=== PATIENT | male | born 1940 | race Caucasian/White ===

== ENCOUNTER 2017-06-16 20:09 | Inpatient (IN) | payer MEDICARE ==
[~2017-06-16] VITALS: Ht 175.3 cm; Wt 95.0 kg
[2017-06-16 20:16] VITALS: BP 135/63; PULSE 71; RESP 16; TEMP 100; O2SAT 95
--- NOTE | 2017-06-16 20:24 | PD ---
HPI Chief Complaint: Medical Clearance Time Seen by Provider: 20:16 Travel History International Travel<30 days: No Contact w/Intl Traveler<30days: No Traveled to known affect area: No History of Present Illness HPI 76-year-old male with history of diabetes, hypertension, hyperlipidemia, hypothyroidism, CHF, brought in by ambulance for evaluation of fever and generalized weakness. The patient is [place] he [place] very tired and pulled off the side of the road to take a nap. He denies chest pain or dyspnea. No cough. No abdominal pain, nausea, vomiting, or diarrhea. PFSH Social History Tobacco Use: No Allergies-Medications (Allergen,Severity, Reaction): Coded Allergies: amlodipine (Verified Allergy, Unknown, 06/16/17) insulin detemir (Verified Allergy, Unknown, 06/16/17) Reported Meds & Prescriptions Reported Meds & Active Scripts Active Reported [place] Respiclick Inh (Fluticasone Propionate) 55 Mcg/Actuation Aer.pow.ba 55 Mg INH BID Lidocaine Topical (Lidocaine HCl) 5 % Oint 1 Applic TOPICAL DAILY PRN Oxycodone (Oxycodone HCl) 5 Mg Cap 5 Mg PO Q4H PRN Afrezza 4 & 8 & 12 Unit (Insulin Regular (Human)) 4-8-12(60) Pow Humulin R Inj (Insulin Human Regular) 1,000 Unit/10 Ml Vial 55 Units SQ DAILYAC Max dose at bedtime:( )units; sugars < 70,(0)units; sugars 150-199,(5)units; sugars 200-249,(10)units; sugars 250-299,(15)units; sugars 300-349,(20)units; sugars more than 349,(25)units. Amiodarone (Amiodarone HCl) 100 Mg Tab 100 Mg PO BID Metoprolol Tartrate 25 Mg Tab 25 Mg PO BID Gabapentin 300 Mg Cap 300 Mg PO TID Furosemide 40 Mg Tab 40 Mg PO DAILY Pentoxifylline ER (Pentoxifylline) 400 Mg Tab 400 Mg PO BID Sildenafil 20 Mg Tab 20 Mg PO TID Terazosin (Terazosin HCl) 5 Mg Cap 5 Mg PO HS Atorvastatin (Atorvastatin Calcium) 80 Mg Tab 80 Mg PO HS Lisinopril 5 Mg Tab 5 Mg PO DAILY Vitamin D3 (Cholecalciferol) 1,000 Unit Cap 1,000 Units DAILY Levothyroxine (Levothyroxine Sodium) 25 Mcg Tab 15 Mcg PO DAILY Review of Systems Except as stated in HPI: all other systems reviewed are Neg Physical Exam Narrative GENERAL: Well-developed, well-nourished, awake, alert, pleasant, no apparent distress. SKIN: Focused skin assessment warm/dry. Bilateral lower extremity warmth and erythema with superficial wounds. HEAD: Atraumatic. Normocephalic. EYES: Pupils equal and round. No scleral icterus. No injection or drainage. ENT: No nasal bleeding or discharge. Mucous membranes pink and moist. NECK: Trachea midline. No JVD. No nuchal rigidity. CARDIOVASCULAR: Regular rate and rhythm. Brisk dorsalis pedis pulses bilaterally. RESPIRATORY: No accessory muscle use. Clear to auscultation. Breath sounds equal bilaterally. GASTROINTESTINAL: Abdomen soft, non-tender, nondistended. MUSCULOSKELETAL: No obvious deformities. No clubbing. No cyanosis. No edema. NEUROLOGICAL: Awake and alert. No obvious cranial nerve deficits. Motor grossly within normal limits. Normal speech. PSYCHIATRIC: Appropriate mood and affect; insight and judgment normal. Data Data Last Documented VS Vital Signs Date Time Temp Pulse Resp B/P (MAP) Pulse Ox O2 Delivery O2 Flow Rate FiO2 06/16/17 20:21 96 2.00 06/16/17 20:20 Room Air 06/16/17 20:16 100.0 71 16 135/63 (87) Orders Orders Sepsis Workup Initiated (06/16/17 ) Complete Blood Count With Diff (06/16/17 20:19) Comprehensive Metabolic Panel (06/16/17 20:19) Prothrombin Time / Inr (Pt) (06/16/17 20:19) Act Partial Throm Time (Ptt) (06/16/17 20:19) Lactic Acid Sepsis Protocol (06/16/17 20:19) Urinalysis - C+S If Indicated (06/16/17 20:19) Influenzae A/B Antigen (06/16/17 20:19) Blood Culture (06/16/17 20:19) Chest, Single Ap (06/16/17 20:19) Blood Glucose (06/16/17 20:19) Ecg Monitoring (06/16/17 20:19) Iv Access Insert/Monitor (06/16/17 20:19) Oximetry (06/16/17 20:19) Oxygen Administration (06/16/17 20:19) Acetaminophen (Tylenol) (06/16/17 20:30) Ceftriaxone Inj (Rocephin Inj) (06/16/17 20:30) Azithromycin Inj (Zithromax Inj) (06/16/17 20:30) Cath For Specimen (06/16/17 20:58) Ceftriaxone Inj (Rocephin Inj) (06/17/17 22:00) Vancomycin Consult Pharmacy (Vancomycin (06/16/17 21:45) Vital Signs (Adult) Q4H (06/16/17 21:35) Activity Oob With Assistance (06/16/17 21:35) Crnp / Telemetry .CONTINUOUS (06/16/17 21:35) Intake + Output DERREK.QSHIFT (06/16/17 21:35) Diet 1800 Ada Cons Carb (06/17/17 Breakfast) Sodium Chlor 0.9% 1000 Ml Inj (Ns 1000 M (06/16/17 21:35) Sodium Chloride 0.9% Flush (Ns Flush) (06/16/17 21:45) Sodium Chloride 0.9% Flush (Ns Flush) (06/17/17 09:00) Ondansetron Inj (Zofran Inj) (06/16/17 21:45) Comprehensive Metabolic Panel (06/17/17 06:00) Complete Blood Count With Diff (06/17/17 06:00) Pt Request For Service (06/16/17 21:35) Case Management Consult (06/16/17 21:35) Heparin Inj (Heparin Inj) (06/17/17 09:00) Acetaminophen (Tylenol) (06/16/17 21:45) Acetamin-Hydrocod 325-5 Mg (Munith 5-325 (06/16/17 21:45) Acetamin-Hydrocod 325-10 Mg (Munith 10-32 (06/16/17 21:45) Docusate Sodium-Senna (Ofelia-Colace) (06/17/17 09:00) Magnesium Hydroxide Liq (Milk Of Magnesi (06/16/17 21:45) Sennosides (Senokot) (06/16/17 21:45) Bisacodyl Supp (Dulcolax Supp) (06/16/17 21:45) Lactulose Liq (Lactulose Liq) (06/16/17 21:45) Inpatient Certification (06/16/17 ) Hemoglobin (Hgb) A1c (06/17/17 06:00) Type And Screen (06/16/17 21:47) Admit Order (Ed Use Only) (06/16/17 21:48) Consult Gastroenterology (06/16/17 ) Hgb & Hct (06/17/17 00:00) Pantoprazole Inj (Protonix Inj) (06/16/17 22:00) Pantoprazole Inj (Protonix Inj) (06/17/17 09:00) Admit To Inpatient (06/16/17 21:49) Labs Laboratory Tests Test 06/16/17 20:23 White Blood Count 7.8 TH/MM3 Red Blood Count 2.56 MIL/MM3 Hemoglobin 8.1 GM/DL Hematocrit 23.5 % Mean Corpuscular Volume 91.6 FL Mean Corpuscular Hemoglobin 31.5 PG Mean Corpuscular Hemoglobin Concent 34.4 % Red Cell Distribution Width 17.0 % Platelet Count 168 TH/MM3 Mean Platelet Volume 9.0 FL Neutrophils (%) (Auto) 81.8 % Lymphocytes (%) (Auto) 4.9 % Monocytes (%) (Auto) 6.4 % Eosinophils (%) (Auto) 6.3 % Basophils (%) (Auto) 0.6 % Neutrophils # (Auto) 6.4 TH/MM3 Lymphocytes # (Auto) 0.4 TH/MM3 Monocytes # (Auto) 0.5 TH/MM3 Eosinophils # (Auto) 0.5 TH/MM3 Basophils # (Auto) 0.0 TH/MM3 CBC Comment DIFF FINAL Differential Comment Prothrombin Time 10.5 SEC Prothromb Time International Ratio 1.0 RATIO Activated Partial Thromboplast Time 21.2 SEC Blood Urea Nitrogen 44 MG/DL Creatinine 2.21 MG/DL Random Glucose 187 MG/DL Total Protein 6.5 GM/DL Albumin 3.0 GM/DL Calcium Level 8.1 MG/DL Alkaline Phosphatase 94 U/L Aspartate Amino Transf (AST/SGOT) 8 U/L Alanine Aminotransferase (ALT/SGPT) 13 U/L Total Bilirubin 0.3 MG/DL Sodium Level 135 MEQ/L Potassium Level 4.6 MEQ/L Chloride Level 103 MEQ/L Carbon Dioxide Level 24.2 MEQ/L Anion Gap 8 MEQ/L Estimat Glomerular Filtration Rate 29 ML/MIN Lactic Acid Level 1.7 mmol/L [facility] Medical Decision Making Medical Screen Exam Complete: Yes Emergency Medical Condition: Yes Differential Diagnosis Sepsis, pneumonia, influenza, viral illness, UTI, metabolic abnormality, DKA Narrative Course Vital signs reviewed. CBC: WBC 7.8, hemoglobin 8.1, hematocrit 23.5, platelets 168, neutrophils 81.8%. CMP is remarkable for BUN 44, creatinine 2.21, GFR 29, random glucose 187. Lactic acid is 1.7. Chest x-ray: Minimal probable changes right base suspicious for an inflammatory process. Patient has heme positive brown stool. Patient was made aware of all findings. He was written for Rocephin and azithromycin. He will be admitted for further treatment and evaluation of pneumonia, anemia, GI bleed, renal insufficiency. Case discussed with hospitalist Dr. Meade who will admit the patient to her service. Diagnosis Primary Impression: Pneumonia Qualified Codes: J18.1 - Lobar pneumonia, unspecified organism Additional Impressions: Anemia Qualified Codes: D64.9 - Anemia, unspecified GI bleed Qualified Codes: K92.2 - Gastrointestinal hemorrhage, unspecified Renal insufficiency Admitting Information Admitting Physician Requests: Admit Parth Gan MD Jun 16, 2017 20:24
[2017-06-16] MEDS ORDERED: AZITHROMYCIN INJ 500 MG in SODIUM CHLOR 0.9% 250 ML INJ 250 ML IV ONE (20:30)
[2017-06-16] MEDS ORDERED: cefTRIAXone INJ 1,000 MG in SODIUM CHLORIDE 0.9% INJ 100 ML IV ONE (20:30)
[2017-06-16] MEDS ORDERED: ACETAMINOPHEN 325 MG TAB PO ONE (20:30)
[2017-06-16 20:43] LABS: AUTOMATED NEUTROPHIL # 6.4 TH/MM3 (1.8-7.7); BASOPHIL % 0.6 % (0.0-2.0); EOSINOPHIL # 0.5 TH/MM3 (0-0.4); EOSINOPHIL % 6.3 % (0.0-4.0); HEMATOCRIT 23.5 % (39.0-51.0); HEMOGLOBIN 8.1 GM/DL (13.0-17.0); LYMPH % 4.9 % (9.0-44.0); LYMPHOCYTE # 0.4 TH/MM3 (1.0-4.8); MEAN CELL VOLUME 91.6 FL (80.0-100.0); MEAN CORPUSCULAR HEMOGLOBIN 31.5 PG (27.0-34.0); MEAN CORPUSCULAR HGB CONC 34.4 % (32.0-36.0); MONO % 6.4 % (0.0-8.0); MONOCYTE # 0.5 TH/MM3 (0-0.9); NEUT % 81.8 % (16.0-70.0); PLATELET COUNT 168 TH/MM3 (150-450); RED BLOOD COUNT 2.56 MIL/MM3 (4.50-5.90); WHITE BLOOD COUNT 7.8 TH/MM3 (4.0-11.0)
[2017-06-16 20:53] LABS: PROTHROMBIN TIME - PATIENT 10.5 SEC (9.8-11.6)
--- NOTE | 2017-06-16 20:55 | RADRPT ---
EXAM DATE/TIME: 06/16/2017 20:36 [place] COMPARISON: No previous studies available for comparison. INDICATIONS : Fever. MEDICAL HISTORY : Unobtainable. SURGICAL HISTORY : Unobtainable. ENCOUNTER: Initial ACUITY: 1 day PAIN SCORE: 0/10 LOCATION: chest FINDINGS: Mild compensated cardiomegaly with minimal parenchymal changes right base suspicious for an inflammat ory process. No pleural effusion no failureThe portion of the bony skeleton visualized is unremarkable. CONCLUSION: Minimal probable changes right base Suspicious for an inflammatory process Aditya Cam MD FACR on June 16, 2017 at 20:51 Board Certified Radiologist. This report was verified electronically.
[2017-06-16 21:03] LABS: AST (GOT) 8 U/L (15-37); BICARBONATE 24.2 MEQ/L (21.0-32.0); BLOOD UREA NITROGEN 44 MG/DL (7-18); CALCIUM 8.1 MG/DL (8.5-10.1); CHLORIDE 103 MEQ/L (98-107); CREATININE 2.21 MG/DL (0.60-1.30); GLOMERULAR FILTRATION RATE 29 ML/MIN (>89); GLUCOSE,RANDOM 187 MG/DL (74-106); SODIUM (NA) 135 MEQ/L (136-145)
[2017-06-16 21:04] LABS: ALT (GPT) 13 U/L (12-78)
[2017-06-16 21:07] LABS: ALKALINE PHOSPHATASE 94 U/L (45-117); TOTAL BILIRUBIN ADULT 0.3 MG/DL (0.2-1.0); TOTAL PROTEIN 6.5 GM/DL (6.4-8.2)
--- NOTE | 2017-06-16 21:41 | HHI.HP ---
[facility] Service [facility] Hospitalists Primary Care Physician Admission Diagnosis Diagnoses: (1) PNA (pneumonia) Diagnosis: Principal (2) Cellulitis Diagnosis: Principal (3) GI bleed Diagnosis: Principal (4) TIARRA (acute kidney injury) Diagnosis: Principal (5) Generalized weakness Diagnosis: Principal (6) DM (diabetes mellitus) Diagnosis: Principal Travel History International Travel<30 Days: No Contact w/Intl Traveler <30 Da: No Traveled to Known Affected Are: No History of Present Illness This is a 76-year-old male with a PMH of HTN, Hyperlipidemia, Hypothyroidism, CHF (Unknown EF), PAD, Anemia and DM who was brought to the ER by EMS secondary to generalized weakness. Pt driving from [employer] for the [employer], states while driving he became very "sleepy" and pulled over, thought he was having an issue w/ his blood sugar and called 911. Denies fever, chills, chest pain, SOB , nausea, vomiting or diarrhea. On arrival, BP 135/63, HR 71, O2 sat 95% RA, Temp 100.0. WBC 7.8. Hemoglobin 8.1, pt states last Hgb was 9.2. Creatinine 2.21, no previous labs for comparison. Lactic Acid 1.7. INR 1.0. CXR with probable changes right base. On exam, pt noted to have bilateral lower extremity cellulitis, also Hemoccult +. S/p Rocephin/Zithro in ER. Review of Systems Except as stated in HPI: all other systems reviewed are Neg ROS: 14 point review of systems otherwise negative. Past Family Social History Past Medical History PMH: HTN, Hyperlipidemia, Hypothyroidism, CHF (Unknown EF), PAD, Anemia and DM Past Surgical History PAST SURGICAL HISTORY: Cholecystectomy, Left Testicle Removal, LE Stent Allergies: Coded Allergies: amlodipine (Verified Allergy, Unknown, 06/16/17) insulin detemir (Verified Allergy, Unknown, 06/16/17) Family History PAST FAMILY HISTORY: Reviewed. No h/o DM or CAD Social History PAST SOCIAL HISTORY: Negative for alcohol, tobacco or drugs. Physical Exam Vital Signs Vital Signs Date Time Temp Pulse Resp B/P (MAP) Pulse Ox O2 Delivery O2 Flow Rate FiO2 06/16/17 20:16 100.0 71 16 135/63 (87) 95 Physical Exam PE: GENERAL: Elderly white male in no acute distress, lethargic but rouses easily, very [place]. HEENT: PERRLA, EOMI. No scleral icterus or conjunctival pallor. No lid lag or facial droop. CARDIOVASCULAR: Regular rate and rhythm. No obvious murmurs to auscultation. No chest tenderness to palpation. RESPIRATORY: No obvious rhonchi or wheezing. Clear to auscultation. Breath sounds equal bilaterally. GASTROINTESTINAL: Abdomen soft, non-tender, nondistended. BS normal. MUSCULOSKELETAL: Extremities without clubbing, cyanosis, 2+ edema. No obvious deformities. Bilateral lower extremity cellulitis w/ chronic wounds. NEUROLOGICAL: Awake, alert and oriented x4. No focal neurologic deficits. Moving both upper and lower extremities spontaneously. Laboratory Laboratory Tests Test 06/16/17 20:23 White Blood Count 7.8 Red Blood Count 2.56 Hemoglobin 8.1 Hematocrit 23.5 Mean Corpuscular Volume 91.6 Mean Corpuscular Hemoglobin 31.5 Mean Corpuscular Hemoglobin Concent 34.4 Red Cell Distribution Width 17.0 Platelet Count 168 Mean Platelet Volume 9.0 Neutrophils (%) (Auto) 81.8 Lymphocytes (%) (Auto) 4.9 Monocytes (%) (Auto) 6.4 Eosinophils (%) (Auto) 6.3 Basophils (%) (Auto) 0.6 Neutrophils # (Auto) 6.4 Lymphocytes # (Auto) 0.4 Monocytes # (Auto) 0.5 Eosinophils # (Auto) 0.5 Basophils # (Auto) 0.0 CBC Comment DIFF FINAL Differential Comment Prothrombin Time 10.5 Prothromb Time International Ratio 1.0 Activated Partial Thromboplast Time 21.2 Blood Urea Nitrogen 44 Creatinine 2.21 Random Glucose 187 Total Protein 6.5 Albumin 3.0 Calcium Level 8.1 Alkaline Phosphatase 94 Aspartate Amino Transf (AST/SGOT) 8 Alanine Aminotransferase (ALT/SGPT) 13 Total Bilirubin 0.3 Sodium Level 135 Potassium Level 4.6 Chloride Level 103 Carbon Dioxide Level 24.2 Anion Gap 8 Estimat Glomerular Filtration Rate 29 Lactic Acid Level 1.7 Date/Time Source Procedure Growth Status 06/16/17 20:28 Blood Peripheral Aerobic Blood Culture Pending Received 06/16/17 20:28 Blood Peripheral Anaerobic Blood Culture Pending Received 06/16/17 20:20 Nasal Washing Influenza Types A,B Antigen (CE) - Final NEGATIVE FOR FLU A AND B ANTIGEN.... Complete Result Diagram: 06/16/17202206/16/172022 Carolann VTE Risk Assessment Caprin VTE Risk Assessment: No/Low Risk (score <= 1) VTE Pharm Contraindication: Active bleeding Caprini Risk Assessment Model Point Value = 1 Point Value = 2 Point Value = 3 Point Value = 5 Age 41-60 Minor surgery BMI > 25 kg/m2 Swollen legs Varicose veins or History of unexplained or recurrent spontaneous Oral contraceptives or hormone replacement Sepsis (< 1 month) Serious lung disease, including pneumonia (< 1 month) Abnormal pulmonary function Acute myocardial infarction Congestive heart failure (< 1 month) History of inflammatory bowel disease Medical patient at bed rest Age 61-74 Arthroscopic surgery Major open surgery (> 45 min) Laparoscopic surgery (> 45 min) Malignancy Confined to bed (> 72 hours) Immobilizing plaster cast Central venous access Age >= 75 History of VTE Family history of VTE Factor V Leiden Prothrombin [id number] Lupus anticoagulant Anticardiolipin antibodies Elevated serum homocysteine Heparin-induced thrombocytopenia Other congenital or acquired thrombophilia Stroke (< 1 month) Elective arthroplasty Hip, pelvis, or leg fracture Acute spinal cord injury (< 1 month) Prophylaxis Regimen Total Risk Factor Score Risk Level Prophylaxis Regimen 0-1 Low Early ambulation 2 Moderate Order ONE of the following: *Sequential Compression Device (SCD) *Heparin 5000 units SQ BID 3-4 Higher Order ONE of the following medications: *Heparin 5000 units SQ TID *Enoxaparin/Lovenox 40 mg SQ daily (WT < 150 kg, CrCl > 30 mL/min) *Enoxaparin/Lovenox 30 mg SQ daily (WT < 150 kg, CrCl > 10-29 mL/min) *Enoxaparin/Lovenox 30 mg SQ BID (WT < 150 kg, CrCl > 30 mL/min) AND/OR *Sequential Compression Device (SCD) 5 or more Highest Order ONE of the following medications: *Heparin 5000 units SQ TID (Preferred with Epidurals) *Enoxaparin/Lovenox 40 mg SQ daily (WT < 150 kg, CrCl > 30 mL/min) *Enoxaparin/Lovenox 30 mg SQ daily (WT < 150 kg, CrCl > 10-29 mL/min) *Enoxaparin/Lovenox 30 mg SQ BID (WT < 150 kg, CrCl > 30 mL/min) AND *Sequential Compression Device (SCD) Assessment and Plan Problem List: (1) PNA (pneumonia) ICD Code: J18.9 - Pneumonia, unspecified organism (2) Cellulitis ICD Code: L03.90 - Cellulitis, unspecified (3) GI bleed ICD Code: K92.2 - Gastrointestinal hemorrhage, unspecified Status: Acute (4) Generalized weakness ICD Code: R53.1 - Weakness (5) TIARRA (acute kidney injury) ICD Code: N17.9 - Acute kidney failure, unspecified (6) DM (diabetes mellitus) ICD Code: E11.9 - Type 2 diabetes mellitus without complications Assessment and Plan A/P: 1. PNA: CXR w/ RLL infiltrate, images reviewed by me, s/p Rocephin/Zithro in ER, will continue w/ IV Abx, DuoNeb prn, Mucinex bid. 2. Cellulitis: Bilateral lower extremity cellulitis w/ chronic wounds, continue w/ IV Abx, will add Vanc for coverage of MRSA. Consult Wound Management for further evaluation. 3. GI Bleed: Hemoccult + on exam, Hgb 8.1, reports baseline Hgb 9.2, Protonix IV, GI Consult for further evaluation. Hold anticoagulation. Check repeat Hgb/ Hct tonight and repeat labs in am. 4. Generalized Weakness: Likely secondary to combination of above, PT for eval /tx, Case Management as needed. Niece is POA, has been informed of admission. 5. TIARRA: Creatinine 2.21, no previous labs for comparison, presumably new. IVF for hydration. Check UA to eval for underlying UTI. Repeat labs in a.m. 6. DM: Sliding scale with Accu-Cheks. Check Hgb A1c. 7. DVT Prophylaxis: Mechanical contraindication secondary to bilateral lower extremity cellulitis. Pharmacologic contraindication secondary to GI Bleed. 8. Social work for DC planning as needed. 9. Case discussed at length with the ER physician, lab/record/imaging reviewed by me. Physician Certification 2 Midnight Certification Type: Admission for Inpatient Services Order for Inpatient Services The services are ordered in accordance with Medicare regulations or non- Medicare payer requirements, as applicable. In the case of services not specified as inpatient-only, they are appropriately provided as inpatient services in accordance with the 2-midnight benchmark. Estimated LOS (days): 2 days is the estimated time the patient will need to remain in the hospital, assuming treatment plan goals are met and no additional complications. Post-Hospital Plan: Not yet determined Problem Qualifiers (1) GI bleed: Qualified Codes: K92.2 - Gastrointestinal hemorrhage, unspecified Olivia Meade MD Jun 16, 2017 21:41
[2017-06-16] MEDS ORDERED: ACETAMINOPHEN 325 MG TAB PO PRN (21:45)
[2017-06-16] MEDS ORDERED: BISACODYL 10 MG SUPP RECTAL PRN (21:45)
[2017-06-16] MEDS ORDERED: SODIUM CHLORIDE 0.9% FLUSH 10 ML FLUSH IV FLUSH PRN (21:45)
[2017-06-16] MEDS ORDERED: SENNOSIDES 8.6 MG TAB PO PRN (21:45)
[2017-06-16] MEDS ORDERED: ACETAMINOPHEN/HYDROcodone 325 MG/5 MG TAB PO PRN (21:45)
[2017-06-16] MEDS ORDERED: ACETAMINOPHEN/HYDROcodone 325 MG/10 MG TAB PO PRN (21:45)
[2017-06-16] MEDS ORDERED: Vancomycin Consult Pharmacy 1 EA OTHER SCH (21:45)
[2017-06-16] MEDS ORDERED: MAGNESIUM HYDROXIDE SUSP 30 ML CUP PO PRN (21:45)
[2017-06-16] MEDS ORDERED: ONDANSETRON HCL 4 MG/2 ML VIAL IVP PRN (21:45)
[2017-06-16] MEDS ORDERED: LACTULOSE SYRUP 20 GM/30 ML CUP PO PRN (21:45)
[2017-06-16] MEDS ORDERED: PANTOPRAZOLE SODIUM 40 MG VIAL IV PUSH ONE (22:00)
[2017-06-16] MEDS ORDERED: TERA5CAP3 PO (22:10)
[2017-06-16] MEDS ORDERED: LISI-519 PO (22:10)
[2017-06-16] MEDS ORDERED: CHOL10008 (22:10)
[2017-06-16] MEDS ORDERED: ATOR80TA45 PO (22:10)
[2017-06-16] MEDS ORDERED: LEVO25TA4 PO (22:10)
[2017-06-16] MEDS ORDERED: LIDO5%T TOPICAL (22:17)
[2017-06-16] MEDS ORDERED: GABA300C5 PO (22:17)
[2017-06-16] MEDS ORDERED: INSU1POW25 (22:17)
[2017-06-16] MEDS ORDERED: INSU100V2 SQ (22:17)
[2017-06-16] MEDS ORDERED: OXYC1CAP PO (22:17)
[2017-06-16] MEDS ORDERED: FURO40TA PO (22:17)
[2017-06-16] MEDS ORDERED: PENT400T PO (22:17)
[2017-06-16] MEDS ORDERED: FLUT55AE INH (22:17)
[2017-06-16] MEDS ORDERED: SILD20TA11 PO (22:17)
[2017-06-16] MEDS ORDERED: METO25TA3 PO (22:17)
[2017-06-16] MEDS ORDERED: AMIO0.1T PO (22:17)
[2017-06-16 22:40] VITALS: BP 120/54; PULSE 59; RESP 15; O2SAT 98
[2017-06-16] MEDS ORDERED: RESP: ALBUTEROL 2.5 MG/IPRATROPIUM 0.5 MG NEB (PRN) NEB (22:45)
[2017-06-16] MEDS ORDERED: VANCOMYCIN INJ 1,250 MG in SODIUM CHLOR 0.9% 250 ML INJ 250 ML IV ONE (23:00)
[2017-06-16] MEDS: SODIUM CHLOR 0.9% 1000 ML INJ 1,000 ML IV SCH (23:12)
[2017-06-17] VITALS: BP 136/60; PULSE 58; RESP 18; TEMP 98.4; O2SAT 98
[2017-06-17 00:05] VITALS: PULSE 59
[2017-06-17 01:54] LABS: HEMATOCRIT 23.3 % (39.0-51.0); HEMOGLOBIN 7.8 GM/DL (13.0-17.0)
[2017-06-17 04:00] VITALS: BP 127/60; PULSE 52; PULSE 57; RESP 18; TEMP 97.9; O2SAT 97
[2017-06-17 08:00] VITALS: BP 125/58; PULSE 51; RESP 16; TEMP 98.1; O2SAT 96
[2017-06-17 08:02] LABS: AUTOMATED NEUTROPHIL # 4.8 TH/MM3 (1.8-7.7); BASOPHIL % 0.3 % (0.0-2.0); EOSINOPHIL # 0.5 TH/MM3 (0-0.4); HEMATOCRIT 23.3 % (39.0-51.0); HEMOGLOBIN 7.9 GM/DL (13.0-17.0); LYMPH % 4.7 % (9.0-44.0); LYMPHOCYTE # 0.3 TH/MM3 (1.0-4.8); MEAN CELL VOLUME 92.8 FL (80.0-100.0); MEAN CORPUSCULAR HEMOGLOBIN 31.4 PG (27.0-34.0); MEAN CORPUSCULAR HGB CONC 33.8 % (32.0-36.0); MEAN PLATELET VOLUME 9.3 FL (7.0-11.0); MONO % 8.9 % (0.0-8.0); MONOCYTE # 0.5 TH/MM3 (0-0.9); NEUT % 78.1 % (16.0-70.0); PLATELET COUNT 154 TH/MM3 (150-450); RED BLOOD COUNT 2.51 MIL/MM3 (4.50-5.90); RED CELL DISTRIBUTION WIDTH 16.8 % (11.6-17.2); WHITE BLOOD COUNT 6.1 TH/MM3 (4.0-11.0)
[2017-06-17 08:22] LABS: ALBUMIN 2.7 GM/DL (3.4-5.0); ALT (GPT) 10 U/L (12-78); AST (GOT) 9 U/L (15-37); BICARBONATE 24.2 MEQ/L (21.0-32.0); BLOOD UREA NITROGEN 40 MG/DL (7-18); CHLORIDE 106 MEQ/L (98-107); GLOMERULAR FILTRATION RATE 32 ML/MIN (>89); GLUCOSE,RANDOM 208 MG/DL (74-106); SODIUM (NA) 139 MEQ/L (136-145)
[2017-06-17 08:25] LABS: ALKALINE PHOSPHATASE 87 U/L (45-117); TOTAL BILIRUBIN ADULT 0.2 MG/DL (0.2-1.0)
[2017-06-17] MEDS: SODIUM CHLOR 0.9% 1000 ML INJ 1,000 ML IV SCH (08:29)
[2017-06-17] MEDS ORDERED: PANTOPRAZOLE SODIUM 40 MG VIAL IV PUSH SCH (09:00)
[2017-06-17] MEDS ORDERED: PENTOXIFYLLINE 400 MG CONTROLLED RELEASE TAB PO SCH (09:00)
[2017-06-17] MEDS ORDERED: HEPARIN SODIUM - SQ 10,000 UNITS/ML VIAL SQ SCH (09:00)
[2017-06-17] MEDS ORDERED: SODIUM CHLORIDE 0.9% FLUSH 10 ML FLUSH IV FLUSH SCH (09:00)
[2017-06-17] MEDS ORDERED: guaiFENesin E.R. 600 MG TAB PO SCH (09:00)
[2017-06-17] MEDS ORDERED: GABAPENTIN 300 MG CAP PO SCH (09:00)
[2017-06-17] MEDS ORDERED: DOCUSATE SODIUM 50 MG/SENNA 8.6 MG TAB PO SCH (09:00)
[2017-06-17] MEDS ORDERED: AMIODARONE 200 MG TAB PO SCH (09:00)
--- NOTE | 2017-06-17 09:08 | HHI.PR ---
Subjective Remarks This is a 76-year-old male with a PMH of HTN, Hyperlipidemia, Hypothyroidism, CHF (Unknown EF), PAD, Anemia and DM who was brought to the ER by EMS secondary to generalized weakness. Pt driving from [place] for the races, states while driving he became very "sleepy" and pulled over, thought he was having an issue w/ his blood sugar and called 911. Denies fever, chills, chest pain, SOB, nausea, vomiting or diarrhea. On arrival, BP 135/63, HR 71, O2 sat 95% RA, Temp 100.0. WBC 7.8. Hemoglobin 8.1, pt states last Hgb was 9.2. Creatinine 2.21, no previous labs for comparison. Lactic Acid 1.7. INR 1.0. CXR with probable changes right base. On exam, pt noted to have bilateral lower extremity cellulitis, also Hemoccult +. S/p Rocephin/Zithro in ER. 06/17: Seen in his bedroom, discussed with patient and his Niece Miss Carol Ann Lang, she wants his relative to be discharge right now or transferred to [facility] for her to be able to take care of him, she is so far from here and wants to go to that hospital, I explained to her non of those to options are recommended because His relative needs management and this treatment can be given here in this facility and needs to continue management, also was warned about probable consequences if she signs AMA that she decided to do, today no nausea, vomit or diarrhea. Objective Vital Signs Date Time Temp Pulse Resp B/P (MAP) Pulse Ox O2 Delivery O2 Flow Rate FiO2 06/17/17 04:00 97.9 57 18 127/60 (82) 97 06/17/17 04:00 52 06/17/17 00:05 59 06/17/17 00:00 98.4 58 18 136/60 (85) 98 06/16/17 22:47 06/16/17 22:40 59 15 120/54 (76) 98 Room Air 06/16/17 20:21 96 2.00 06/16/17 20:20 89 Room Air 06/16/17 20:16 100.0 71 16 135/63 (87) 95 I/O 4/6/18 4/6/18 06/16/17 06/17/17 06/17/17 06/17/17 07:00 15:00 23:00 07:00 15:00 23:00 Intake Total 350 ml 1163 ml 250 ml Balance 350 ml 1163 ml 250 ml Intake Oral 240 ml IV Total 350 ml 923 ml 250 ml # Voids 1 # Bowel Movements 0 Result Diagram: 06/17/17 0708 06/17/17 0708 Imaging Last Impressions Chest X-Ray 06/16/172018 Signed Impressions: Service Date/Time: Friday, June 16, 2017 20:36 - CONCLUSION: Minimal probable changes right base Suspicious for an inflammatory process Aditya Cam MD FACR Procedures None Other Results Laboratory Tests Test 06/16/17 20:23 06/17/17 07:08 Prothrombin Time 10.5 SEC Prothromb Time International Ratio 1.0 RATIO Activated Partial Thromboplast Time 21.2 SEC Lactic Acid Level 1.7 mmol/L White Blood Count 6.1 TH/MM3 Red Blood Count 2.51 MIL/MM3 Hemoglobin 7.9 GM/DL Hematocrit 23.3 % Mean Corpuscular Volume 92.8 FL Mean Corpuscular Hemoglobin 31.4 PG Mean Corpuscular Hemoglobin Concent 33.8 % Red Cell Distribution Width 16.8 % Platelet Count 154 TH/MM3 Mean Platelet Volume 9.3 FL Neutrophils (%) (Auto) 78.1 % Lymphocytes (%) (Auto) 4.7 % Monocytes (%) (Auto) 8.9 % Eosinophils (%) (Auto) 8.0 % Basophils (%) (Auto) 0.3 % Neutrophils # (Auto) 4.8 TH/MM3 Lymphocytes # (Auto) 0.3 TH/MM3 Monocytes # (Auto) 0.5 TH/MM3 Eosinophils # (Auto) 0.5 TH/MM3 Basophils # (Auto) 0.0 TH/MM3 CBC Comment DIFF FINAL Differential Comment Blood Urea Nitrogen 40 MG/DL Creatinine 2.00 MG/DL Random Glucose 208 MG/DL Total Protein 6.0 GM/DL Albumin 2.7 GM/DL Calcium Level 8.0 MG/DL Alkaline Phosphatase 87 U/L Aspartate Amino Transf (AST/SGOT) 9 U/L Alanine Aminotransferase (ALT/SGPT) 10 U/L Total Bilirubin 0.2 MG/DL Sodium Level 139 MEQ/L Potassium Level 4.1 MEQ/L Chloride Level 106 MEQ/L Carbon Dioxide Level 24.2 MEQ/L Anion Gap 9 MEQ/L Estimat Glomerular Filtration Rate 32 ML/MIN Objective Remarks GENERAL: No acute distress. HEENT: PERRLA, EOMI. CARDIOVASCULAR: Regular rate and rhythm. No obvious murmurs to auscultation. RESPIRATORY: No obvious rhonchi or wheezing. Clear to auscultation. GASTROINTESTINAL: Abdomen soft, non-tender, nondistended. BS normal. MUSCULOSKELETAL: Extremities without clubbing, cyanosis, 2+ edema. No obvious deformities. Bilateral lower extremity cellulitis w/ chronic wounds. NEUROLOGICAL: Awake, alert and oriented x4. No focal neurologic deficits. Moving both upper and lower extremities spontaneously. Medications and IVs Current Medications Medications (Trade) Dose Ordered Sig/Emma Route Start Time Stop Time Status Last Admin Ceftriaxone Sodium 1000 mg/ Sodium Chloride 100 ml @ 200 mls/hr Q24H IV 06/17/17 22:00 Pharmacy Profile Note 0 ml @ 0 mls/hr UNSCH OTHER 06/16/17 21:45 Sodium Chloride 1,000 ml @ 100 mls/hr Q10H IV 06/16/17 21:35 06/17/17 08:29 (NS Flush) 2 ml UNSCH PRN IV FLUSH 06/16/17 21:45 (NS Flush) 2 ml BID IV FLUSH 06/17/17 09:00 (Zofran Inj) 4 mg Q6H PRN IVP 06/16/17 21:45 (Tylenol) 650 mg Q6H PRN PO 06/16/17 21:45 (Ofelia-Colace) 1 tab BID PO 06/17/17 09:00 (Milk Of Magnesia Liq) 30 ml Q12H PRN PO 06/16/17 21:45 (Senokot) 17.2 mg Q12H PRN PO 06/16/17 21:45 (Dulcolax Supp) 10 mg DAILY PRN RECTAL 06/16/17 21:45 (Lactulose Liq) 30 ml DAILY PRN PO 06/16/17 21:45 (Protonix Inj) 40 mg Q12H IV PUSH 06/17/17 09:00 06/17/17 08:28 (Duoneb Neb) 1 ampule Q4HR NEB PRN NEB 06/16/17 22:45 (Mucinex Er) 600 mg BID PO 06/17/17 09:00 06/17/17 08:27 (Cordarone) 100 mg BID PO 06/17/17 09:00 06/17/17 08:27 (Lipitor) 80 mg HS PO 06/17/17 21:00 (Neurontin) 300 mg Q12HR PO 06/17/17 09:00 06/17/17 08:28 (TRENtal SR) 400 mg BID PO 06/17/17 09:00 06/17/17 08:29 (Hytrin) 5 mg HS PO 06/17/17 21:00 (Roxicodone) 5 mg Q4H PRN PO 06/17/17 01:00 06/17/17 06:26 A/P Assessment and Plan (1) PNA (pneumonia) ICD Code: J18.9 - Pneumonia, unspecified organism (2) Cellulitis ICD Code: L03.90 - Cellulitis, unspecified (3) GI bleed ICD Code: K92.2 - Gastrointestinal hemorrhage, unspecified Status: Acute (4) Generalized weakness ICD Code: R53.1 - Weakness (5) TIARRA (acute kidney injury) ICD Code: N17.9 - Acute kidney failure, unspecified (6) DM (diabetes mellitus) ICD Code: E11.9 - Type 2 diabetes mellitus without complications Assessment and Plan A/P: 1. PNA: CXR w/ RLL infiltrate, images reviewed by me, s/p Rocephin/Juanjothraniket in ER, will continue w/ IV Abx, DuoNeb prn, Mucinex bid. 2. Cellulitis: Bilateral lower extremity cellulitis w/ chronic wounds, continue w/ IV Abx, will add Vanc for coverage of MRSA. Consult Wound Management for further evaluation. 3. GI Bleed: Hemoccult + on exam, Hgb 8.1, reports baseline Hgb 9.2, Protonix IV, GI Consult for further evaluation. Hold anticoagulation. Check repeat Hgb/ Hct tonight and repeat labs in am. 4. Generalized Weakness: Likely secondary to combination of above, PT for eval /tx, Case Management as needed. Niece is POA, has been informed of admission. 5. TIARRA: Creatinine 2.21, no previous labs for comparison, presumably new. IVF for hydration. Check UA to eval for underlying UTI. Repeat labs in a.m. 6. DM: Sliding scale with Accu-Cheks. Check Hgb A1c. Uncontrolled started on his home medicine Lantus 55 units daily. DVT Prophylaxis: Mechanical contraindication secondary to bilateral lower extremity cellulitis. Pharmacologic contraindication secondary to GI Bleed. Discharge Planning patient and his Niece decided to sign Manuel Strickland MD Jun 17, 2017 09:08
[2017-06-17] MEDS ORDERED: INSULIN GLARGINE 1,000 UNITS/10 ML VIAL SQ SCH (11:00)
[2017-06-17] MEDS ORDERED: LANTUS2P SQ (11:51)
[2017-06-17] MEDS ORDERED: INSULIN ASPART 1,000 UNITS/10 ML VIAL SQ SCH (12:00)
[2017-06-17 13:04] LABS: HEMOGLOBIN A1C 7.4 % (4.3-6.0)
--- NOTE | 2017-06-17 14:09 | HHI.DS ---
Discharge Summary Admission Date Jun 16, 2017 at 21:49 Discharge Date: Jun 17, 2017 Admitting Diagnosis (1) PNA (pneumonia) ICD Code: J18.9 - Pneumonia, unspecified organism Diagnosis: Principal (2) Cellulitis ICD Code: L03.90 - Cellulitis, unspecified Diagnosis: Principal (3) GI bleed ICD Code: K92.2 - Gastrointestinal hemorrhage, unspecified Diagnosis: Principal Status: Acute (4) Generalized weakness ICD Code: R53.1 - Weakness Diagnosis: Principal (5) TIARRA (acute kidney injury) ICD Code: N17.9 - Acute kidney failure, unspecified Diagnosis: Principal (6) DM (diabetes mellitus) ICD Code: E11.9 - Type 2 diabetes mellitus without complications Diagnosis: Principal Procedures None Brief History - From Admission This is a 76-year-old male with a PMH of HTN, Hyperlipidemia, Hypothyroidism, CHF (Unknown EF), PAD, Anemia and DM who was brought to the ER by EMS secondary to generalized weakness. Pt driving from [employer], states while driving he became very "sleepy" and pulled over, thought he was having an issue w/ his blood sugar and called 911. Denies fever, chills, chest pain, SOB , nausea, vomiting or diarrhea. On arrival, BP 135/63, HR 71, O2 sat 95% RA, Temp 100.0. WBC 7.8. Hemoglobin 8.1, pt states last Hgb was 9.2. Creatinine 2.21, no previous labs for comparison. Lactic Acid 1.7. INR 1.0. CXR with probable changes right base. On exam, pt noted to have bilateral lower extremity cellulitis, also Hemoccult +. S/p Rocephin/Zithro in ER. CBC/BMP: 06/17/17 0708 06/17/17 0708 Significant Findings Laboratory Tests Test 06/16/17 20:23 06/17/17 00:54 06/17/17 07:08 Red Blood Count 2.56 MIL/MM3 (4.50-5.90) 2.51 MIL/MM3 (4.50-5.90) Hemoglobin 8.1 GM/DL (13.0-17.0) 7.8 GM/DL (13.0-17.0) 7.9 GM/DL (13.0-17.0) Hematocrit 23.5 % (39.0-51.0) 23.3 % (39.0-51.0) 23.3 % (39.0-51.0) Neutrophils (%) (Auto) 81.8 % (16.0-70.0) 78.1 % (16.0-70.0) Lymphocytes (%) (Auto) 4.9 % (9.0-44.0) 4.7 % (9.0-44.0) Eosinophils (%) (Auto) 6.3 % (0.0-4.0) 8.0 % (0.0-4.0) Lymphocytes # (Auto) 0.4 TH/MM3 (1.0-4.8) 0.3 TH/MM3 (1.0-4.8) Eosinophils # (Auto) 0.5 TH/MM3 (0-0.4) 0.5 TH/MM3 (0-0.4) Activated Partial Thromboplast Time 21.2 SEC (24.3-30.1) Blood Urea Nitrogen 44 MG/DL (7-18) 40 MG/DL (7-18) Creatinine 2.21 MG/DL (0.60-1.30) 2.00 MG/DL (0.60-1.30) Random Glucose 187 MG/DL (74-106) 208 MG/DL (74-106) Albumin 3.0 GM/DL (3.4-5.0) 2.7 GM/DL (3.4-5.0) Calcium Level 8.1 MG/DL (8.5-10.1) 8.0 MG/DL (8.5-10.1) Aspartate Amino Transf (AST/SGOT) 8 U/L (15-37) 9 U/L (15-37) Sodium Level 135 MEQ/L (136-145) Estimat Glomerular Filtration Rate 29 ML/MIN (>89) 32 ML/MIN (>89) Monocytes (%) (Auto) 8.9 % (0.0-8.0) Total Protein 6.0 GM/DL (6.4-8.2) Alanine Aminotransferase (ALT/SGPT) 10 U/L (12-78) Hemoglobin A1c 7.4 % (4.3-6.0) Imaging Last Impressions Chest X-Ray 06/16/172018 Signed Impressions: Service Date/Time: Friday, June 16, 2017 20:36 - CONCLUSION: Minimal probable changes right base Suspicious for an inflammatory process Aditya Cam MD FACR PE at Discharge GENERAL: No acute distress. HEENT: PERRLA, EOMI. CARDIOVASCULAR: Regular rate and rhythm. No obvious murmurs to auscultation. RESPIRATORY: No obvious rhonchi or wheezing. Clear to auscultation. GASTROINTESTINAL: Abdomen soft, non-tender, nondistended. BS normal. MUSCULOSKELETAL: Extremities without clubbing, cyanosis, 2+ edema. No obvious deformities. Bilateral lower extremity cellulitis w/ chronic wounds. NEUROLOGICAL: Awake, alert and oriented x4. No focal neurologic deficits. Moving both upper and lower extremities spontaneously. Transfer Summary Decided to sign Against medical Advise. Hospital Course This is a 76-year-old male with a PMH of HTN, Hyperlipidemia, Hypothyroidism, CHF (Unknown EF), PAD, Anemia and DM who was brought to the ER by EMS secondary to generalized weakness. Pt driving from [place] for [employer], states while driving he became very "sleepy" and pulled over, thought he was having an issue w/ his blood sugar and called 911. Denies fever, chills, chest pain, SOB, nausea, vomiting or diarrhea. On arrival, BP 135/63, HR 71, O2 sat 95% RA, Temp 100.0. WBC 7.8. Hemoglobin 8.1, pt states last Hgb was 9.2. Creatinine 2.21, no previous labs for comparison. Lactic Acid 1.7. INR 1.0. CXR with probable changes right base. On exam, pt noted to have bilateral lower extremity cellulitis, also Hemoccult +. S/p Rocephin/Zigabeo in ER. 06/17: Seen in his bedroom, discussed with patient and his Niece Miss Carol Ann Lang, she wants his relative to be discharge right now or transferred to [place] for her to be able to take care of him, she is so far from here and wants to go to that hospital, I explained to her non of those to options are recommended because His relative needs management and this treatment can be given here in this facility and needs to continue management, also was warned about probable consequences if she signs AMA that she decided to do, today no nausea, vomit or diarrhea. Assessment and Plan A/P: 1. PNA: CXR w/ RLL infiltrate, images reviewed by me, s/p Rocephin/Zithro in ER, will continue w/ IV Abx, DuoNeb prn, Mucinex bid. 2. Cellulitis: Bilateral lower extremity cellulitis w/ chronic wounds, continue w/ IV Abx, will add Vanc for coverage of MRSA. Consult Wound Management for further evaluation. 3. GI Bleed: Hemoccult + on exam, Hgb 8.1, reports baseline Hgb 9.2, Protonix IV, GI Consult for further evaluation. Hold anticoagulation. Check repeat Hgb/ Hct tonight and repeat labs in am. 4. Generalized Weakness: Likely secondary to combination of above, PT for eval /tx, Case Management as needed. Niece is POA, has been informed of admission. 5. TIARRA: Creatinine 2.21, no previous labs for comparison, presumably new. IVF for hydration. Check UA to eval for underlying UTI. Repeat labs in a.m. 6. DM: Sliding scale with Accu-Cheks. Check Hgb A1c. Uncontrolled started on his home medicine Lantus 55 units daily. DVT Prophylaxis: Mechanical contraindication secondary to bilateral lower extremity cellulitis. Pharmacologic contraindication secondary to GI Bleed. Discharge Planning patient and his Niece decided to sign AMA Pt Condition on Discharge: Guarded Discharge Disposition: Discharge Home Discharge Time: <= 30 minutes Manuel Gomez MD Jun 17, 2017 14:09
[2017-06-17] MEDS ORDERED: PANTOPRAZOLE SOD 40 MG DELAYED RELEASE TAB PO SCH (21:00)
[2017-06-17] MEDS ORDERED: ATORVASTATIN 80 MG TAB PO SCH (21:00)
[2017-06-17] MEDS ORDERED: TERAZOSIN HCL 5 MG CAP PO SCH (21:00)
[2017-06-17] MEDS ORDERED: cefTRIAXone INJ 1,000 MG in SODIUM CHLORIDE 0.9% INJ 100 ML IV SCH (22:00)
[2017-06-18] MEDS ORDERED: VANCOMYCIN INJ 1,250 MG in SODIUM CHLOR 0.9% 250 ML INJ 250 ML IV SCH ×2
[2017-06-19] MEDS ORDERED: PHARMACY ORDERED LAB ONE (23:45)
== END 2017-06-17 13:38 | disposition left against medical advice (07) | DRG 194 ==
LOC: NEPE 20:09 → NEDH 21:49 → N06B 22:52
PROVIDERS: ADMIT Internal Medicine; ATTEND Internal Medicine
DX: J18.9 Pneumonia, unspecified organism (principal); K92.2 Gastrointestinal hemorrhage, unspecified; N17.9 Acute kidney failure, unspecified; E11.65 Type 2 diabetes mellitus with hyperglycemia; I50.9 Heart failure, unspecified; I11.0 Hypertensive heart disease with heart failure; L03.115 Cellulitis of right lower limb; L03.116 Cellulitis of left lower limb; D64.9 Anemia, unspecified; Z79.4 Long term (current) use of insulin; E78.5 Hyperlipidemia, unspecified; E03.9 Hypothyroidism, unspecified
CPT/HCPCS: 71045; 80053; 82948; 83036; 83605; 85014; 85018; 85025; 85610; 85730; 86850; 86900; 86901; 87040; 87804; 96365; 96375; C9113; J0456; J0696; J1815; J3370; J7030; J7050